=== PATIENT | female | born 1975 ===

== ENCOUNTER 2019-08-22 06:06 | Day surgery (SDC) | payer OTHER ==
[2019-08-21 11:54] VITALS: BMI 32.5
[2019-08-22] MEDS ORDERED: ERTAPENEM SODIUM 1 GM VIAL ONE (06:59)
[2019-08-22] MEDS ORDERED: LIDOCAINE HCL/PF 2% SDV 5ML VIAL ONE (07:24)
[2019-08-22] MEDS ORDERED: ONDANSETRON 4 MG/2 ML VIAL ONE (07:24)
[2019-08-22] MEDS ORDERED: SUCCINYLCHOLINE CHLORIDE 200 MG/10 ML SYRINGE ONE (07:24)
[2019-08-22] MEDS ORDERED: ROCURONIUM BROMIDE 50 MG/5 ML SYRINGE ONE (07:24)
[2019-08-22] MEDS ORDERED: MIDAZOLAM HCL 2 MG/2 ML SINGLE DOSE VIAL ONE (07:24)
[2019-08-22] MEDS ORDERED: fentaNYL CITRATE 250 MCG/5 ML VIAL ONE (07:24)
[2019-08-22] MEDS ORDERED: PROPOFOL 20 ML ONE (07:24)
[2019-08-22] MEDS ORDERED: DEXAMETHASONE SOD PHOSPHATE 4 MG/1 ML VIAL ONE (07:24)
[2019-08-22] MEDS ORDERED: ERTAPENEM SODIUM 1 GM VIAL IVPB ONE (08:08)
[2019-08-22] MEDS ORDERED: ceFAZolin SODIUM 1 GM VIAL ONE (08:17)
[2019-08-22] MEDS ORDERED: NEOSTIGMINE METHYLSULFATE 0.5 MG/1 ML - 10 ML MDV ONE (08:46)
[2019-08-22] MEDS ORDERED: GLYCOPYRROLATE 0.2 MG/1 ML VIAL ONE (08:46)
[2019-08-22] MEDS ORDERED: KETOROLAC TROMETHAMINE 30 MG/1 ML VIAL ONE (08:52)
[2019-08-22] MEDS ORDERED: ONDANSETRON 4 MG/2 ML VIAL IVPUSH PRN (09:08)
[2019-08-22] MEDS ORDERED: oxyCODONE HCL 5 MG TABLET PO PRN (09:08)
[2019-08-22] MEDS ORDERED: ACETAMINOPHEN 325 MG TABLET (FP) PO PRN (09:08)
[2019-08-22] MEDS ORDERED: morphine CARPU-JECT 10 MG/1 ML DISP.SYRIN IVPB PRN (09:08)
[2019-08-22] MEDS ORDERED: D5-1/2NS+20 MEQ KCL - 20 MEQ/1,000 ML INFUS.BAG IV SCH (09:15)
[2019-08-22] MEDS ORDERED: LACTATED RINGERS SOLUTION 1,000 ML IV SCH (09:15)
[2019-08-22] MEDS ORDERED: ENOXAPARIN NA (PORCINE) 40 MG/0.4 ML DISP.SYRIN SQ SCH (10:00)
[2019-08-22] MEDS ORDERED: morphine SULFATE 4 MG/ML VIAL IVPB PRN (10:14)
[2019-08-22] MEDS: LEVOTHYROXINE NA 100 MCG TABLET (FP) PO SCH (14:39)
[2019-08-22] MEDS: PANTOPRAZOLE SODIUM 40 MG VIAL IVPUSH SCH (14:39)
[2019-08-23] MEDS: LEVOTHYROXINE NA 100 MCG TABLET (FP) PO SCH (06:09)
--- NOTE | 2019-08-23 08:18 | OP ---
DATE OF OPERATION: 08/22/2019 PREOPERATIVE DIAGNOSIS: Chronic cholecystitis/cholelithiasis. POSTOPERATIVE DIAGNOSIS: Chronic cholecystitis/cholelithiasis. PROCEDURE: Laparoscopic cholecystectomy. OPERATING SURGEON: Crystal Mccain MD PLUG CUTTING MACHINE OPERATOR: Kain Bruno MD ANESTHESIA: General. ANESTHESIOLOGIST: Luis Alberto Goodman MD HISTORY: This is a 43-year-old woman who presents for laparoscopic removal of her gallbladder as management of symptomatic cholelithiasis/chronic cholecystitis. Indications, alternatives, possible complications reviewed. Consent obtained. PROCEDURE: With the patient in the supine position, and after general anesthesia, the abdomen was prepped and draped in sterile fashion using chlorhexidine. A small infraumbilical incision was made through which a Veress needle was placed into the abdominal cavity. The abdominal cavity was insufflated to an adequate pressure and volume using CO2 gas. The Veress needle was removed. An 11-mm trocar port placed through the infraumbilical wound. The camera lens passed through this port and the intraabdominal cavity visualized. Under direct vision two 5-mm right anterolateral ports were placed in the right upper quadrant after which clamps were passed to maintain traction and aid in the dissection. An 11-mm port was placed in the epigastrium through which the operating instruments were passed. Limited exploration of the abdomen revealed several adhesions about the gallbladder. These were taken down under direct vision, exposing the entire gallbladder and hepatoduodenal ligament. The peritoneum and hepatoduodenal ligament were incised. The cystic duct was identified. The cystic duct/bile duct junction was noted. The adjacent cystic artery was identified, clipped and divided as well as a posterior branch of the artery as well. The gallbladder was then removed from its bed using the electrocautery. It was ultimately freed without difficulty. The right upper quadrant was irrigated. The irrigant retrieved. Adequate hemostasis was ensured. All port sites were visualized under direct vision and removed with no bleeding identified. Ultimately the infraumbilical port was removed and the gallbladder was delivered through this trocar site uneventfully. After the pneumoperitoneum was allowed to escape the fascia at the umbilicus was approximated with interrupted 0 Vicryl sutures. All skin wounds were closed using subcuticular 4-0 Biosyn sutures. NEEDLE AND INSTRUMENT COUNTS: Correct. ESTIMATED BLOOD LOSS: Minimal. SPECIMEN: Gallbladder. DRAINS: None. Patient tolerated procedure. Procedure was terminated. CRYSTAL MCCAIN M.D. [id number]
[2019-08-23] MEDS: PANTOPRAZOLE SODIUM 40 MG VIAL IVPUSH SCH (09:12)
[2019-08-23] MEDS ORDERED: ENOXAPARIN NA (PORCINE) 40 MG/0.4 ML DISP.SYRIN SQ SCH (10:00)
[2019-08-23 10:05] VITALS: BP 106/61; PULSE 77; TEMP 98.2
--- NOTE | 2019-08-24 18:58 | PATH ---
Surgical Pathology Report Patient Name: STEPHON CALHOUN [facility]. Rec. #: [id number] /Age/Gender: 1975 (Age: 43) / F Account: [id number] Location: AMBULATORY SURG Taken: 08/22/2019 Received: 08/22/2019 Reported: 08/24/2019 Physicians: Sher Mccain M.D. Specimen(s) Received GALLBLADDER Clinical History Calculus of gallbladder with acute cholecystitis without obstruction Final Diagnosis GALLBLADDER, CHOLECYSTECTOMY: CHRONIC CHOLECYSTITIS AND CHOLELITHIASIS. Electronically Signed Stephanie Friedman M.D. Gross Description Received in formalin, labeled "gallbladder," is a 6.3 x 2.0 x 1.8 cm. gallbladder with a 0.2 cm. in length portion of cystic duct attached. The outer surface is pfeiffer-green with a focal defect and varies from smooth to shaggy. The lumen contains green, tenacious bile as well as multiple yellow, irregular to fragmented choleliths ranging from 0.1-0.5 cm in greatest dimension. The mucosa is green and velvety with gold cholesterol stippling and focal erosions. The wall of the gallbladder averages 0.1 cm. in thickness. Brush Machine Setter sections are submitted in one cassette. [facility]
== END 2019-08-23 10:54 | disposition home or self-care (01) ==
LOC: JASUSAT 06:06 → J6S 13:50 → JASUSAT 08-23 10:54
PROVIDERS: ATTEND Surgery
PROC: 0FT44ZZ Resection of Gallbladder, Percutaneous Endoscopic Approach (ICD-10-PCS; principal; 2019-08-22 08:00)
DX: K80.10 Calculus of gallbladder with chronic cholecystitis without obstruction (principal)
CPT/HCPCS: 84703; 86850; 86900; 86901; 88304-TC; 94760